=== PATIENT | female | born 1970 | race Caucasian/White ===

== ENCOUNTER 2023-04-05 09:50 | Outpatient (OUT) | payer OTHER, SELFPAY ==
--- NOTE | 2023-04-05 | XR_ITS ---
The [address] [address] Patient Name: SEAN BACK MRN: [id number] date: 1970 Sex: F Assigned Patient Location: [facility] Current Patient Location: [facility] Accession/Order Number: [id number] Exam Date: 04/05/2023 10:20 Report Date: 04/05/2023 11:04 At the request of: JIMENEZ MCCARTNEY Procedure: XR ankle MONY min 3V EXAM: XR ankle MONY min 3V HISTORY: BILATERAL ANKLE PAIN COMPARISON: There is no appropriate prior study for comparison. The alignment is anatomical. Bilateral calcaneal spurs are noted. There is no acute fracture or dislocation. Partially visualized screws in the left foot are noted. The interarticular joint spaces are preserved. No significant soft tissue abnormality is noted. XR/XR ankle MONY min 3V IMPRESSION: No acute finding. Electronically authenticated by: URBANO APARICIO Date: 04/05/2023 11:04
--- NOTE | 2023-04-05 | XR_ITS ---
The [address] [address] Patient Name: SEAN BACK MRN: [id number] date: 1970 Sex: F Assigned Patient Location: [facility] Current Patient Location: [facility] Accession/Order Number: [id number] Exam Date: 04/05/2023 10:20 Report Date: 04/05/2023 13:03 At the request of: JIMENEZ MCCARTNEY Procedure: XR foot MONY min 3V Exam: Radiographs: XR foot MONY min 3V Reason for exam: Bilateral foot pain Comparison: None XR/XR foot MONY min 3V IMPRESSION: Left bunionectomy and first metatarsal osteotomy with internal fixation screws. Mild left foot degenerative changes, most evident at the first MTP joint. Pes planus. Left foot is otherwise unremarkable. Mild right foot degenerative changes, most evident at the first MTP joint. Pes planus. Right foot is otherwise unremarkable. Electronically authenticated by: CHAIM DUBON Date: 04/05/2023 13:03
== END 2023-04-05 09:51 | disposition home or self-care (01) ==
LOC: RAD 09:50
PROVIDERS: PCP Family Medicine; Visit Provider Physician Assistant
DX: M25.579 Pain in unspecified ankle and joints of unspecified foot (principal); M79.673 Pain in unspecified foot; M25.571 Pain in right ankle and joints of right foot; M25.572 Pain in left ankle and joints of left foot
CPT/HCPCS: 73610; 73630